=== PATIENT | female | born 1990 | race African-American/Black ===

== ENCOUNTER 2021-08-12 08:06 | Emergency (ER) | payer OTHER, SELFPAY ==
[2021-08-12 08:57] LABS: #Eosinphils 0.1 10x3/uL (0.0-0.5); #Monocytes 0.3 10x3/uL (0.0-1.1); #Neutrophils 7.6 10x3/uL (1.5-8.4); %Basophils 0.3 % (0.0-2.0); %Eosinophils 1.2 % (0.0-6.0); %Lymphocytes 11.1 % (18.0-47.0); %Monocytes 3.7 % (0.0-10.0); %Neutrophils 83.4 % (40.0-75.0); Hemoglobin 13.4 g/dL (12.0-15.5); Mean Corpuscular HGB CONC 34.3 g/dL (32.0-36.0); Mean Corpuscular Hemoglobin 28.1 pg (27.0-33.0); Mean Platelet Volume 12.2 fl (7.4-10.4); Platelet Count 206 10x3/uL (150-450); RBC Distribution Width 14.2 % (11.5-14.5); Red Blood Cell (RBC) Count 4.77 10x6/uL (3.90-5.03); White Blood Cell (WBC) Count 9.2 10x3/uL (3.5-10.5)
[2021-08-12] MEDS ORDERED: Ketorolac Tromethamine 30 MG/ML VIAL ONE (08:57)
[2021-08-12] MEDS ORDERED: Ondansetron PF 4 MG/2 ML Vial ONE (08:58)
[2021-08-12 09:03] LABS: BHCG - Serum Negative (NEGATIVE); Pregs Control Background? CLEAR/WHITE (CLR/WHITE); Pregs Control Bar Appear? YES (CONTROL BAR)
[2021-08-12 09:08] LABS: ALT (SGPT) 12 U/L (8-55); AST (SGOT) 20 U/L (5-34); Albumin 4.5 g/dL (3.5-5.0); Alkaline Phosphatase 66 U/L (40-110); Anion Gap 12 mmol/L (10-20); BUN (Urea Nitrogen) 14 mg/dL (7.0-18.7); Bilirubin, Total 1.2 mg/dL (0.2-1.2); Calc. Creatinine Clearance 0 mL/min (70-130); Calcium 9.1 mg/dL (7.8-10.44); Carbon Dioxide 25 mmol/L (22-29); Chloride 106 mmol/L (98-107); Glucose 92 mg/dL (70-105); Lipase 36 U/L (8-78); Potassium 3.8 mmol/L (3.5-5.1); Protein, Total 7.5 g/dL (6.0-8.3); Sodium 139 mmol/L (136-145)
[2021-08-12 09:22] LABS: Bilirubin Neg (Negative); Blood, Urine 25 (Negative); Clarity Clear (Clear); Glucose, Urine (Dipstick) Normal (Negative); Ketone, Urine Negative (Negative); Leukocyte Negative (Negative); Nitrite Negative (Negative); Protein, Urine (Dipstick) Negative (Neg-Trace); Urobilinogen Normal mg/dL (Less than 2)
[2021-08-12 09:40] LABS: Bacteria/HPF None Seen HPF (None Seen); Mucous/LPF 1+ LPF (<2+); RBC/HPF 0-3 HPF (0-3); Squamous Epithelial 0-3 HPF (0-3); WBC/HPF 0-3 HPF (0-3)
== END 2021-08-12 09:55 | disposition home or self-care (01) ==
LOC: CSHERS 08:06
DX: R11.2 Nausea with vomiting, unspecified (principal); R10.13 Epigastric pain; R19.7 Diarrhea, unspecified; F17.210 Nicotine dependence, cigarettes, uncomplicated
CPT/HCPCS: 80053; 81003; 81015; 83690; 84703; 85025; 96361; 96374; 96375; J1885; J2405

== ENCOUNTER 2021-12-24 08:26 | Emergency (ER) | payer OTHER | END 2021-12-24 10:26 | disposition home or self-care (01) | LOC: CSHERS 08:26 | DX: B34.9 Viral infection, unspecified (principal); F17.210 Nicotine dependence, cigarettes, uncomplicated; Z20.822 Contact with and (suspected) exposure to COVID-19 | CPT/HCPCS: 71046; 87804; U0003; U0005 ==

== ENCOUNTER 2021-12-29 11:28 | Emergency (ER) | payer OTHER | END 2021-12-29 13:59 | disposition home or self-care (01) | LOC: CSHERS 11:28 | DX: H10.9 Unspecified conjunctivitis (principal); D64.9 Anemia, unspecified; F17.210 Nicotine dependence, cigarettes, uncomplicated | CPT/HCPCS: 99282 ==

== ENCOUNTER 2022-06-22 10:26 | Emergency (ER) | payer OTHER ==
[2022-06-22] MEDS ORDERED: Oxymetazoline HCl 0.05% ( 15 ML ) ONE (11:06)
== END 2022-06-22 11:24 | disposition home or self-care (01) ==
LOC: CSHERS 10:26
DX: O99.512 Diseases of the respiratory system complicating pregnancy, second trimester (principal); F17.210 Nicotine dependence, cigarettes, uncomplicated; Z3A.16 16 weeks gestation of pregnancy
CPT/HCPCS: 99283

== ENCOUNTER 2022-10-19 23:15 | Day surgery (SDC) | payer OTHER ==
[2022-10-20] MEDS ORDERED: hydrALAZINE 20 MG/ML VIAL SLOW IVP PRN (00:50)
[2022-10-20 05:51] LABS: Bilirubin Negative (Negative); Clarity Slightly Cloudy (Clear); Glucose, Urine (Dipstick) Negative (Negative); Ketone, Urine 5 mg/dL (Negative); Leukocyte Negative (Negative); Nitrite Negative (Negative); Protein, Urine (Dipstick) Negative (Neg-Trace); Urobilinogen Normal mg/dL (Less than 2)
[2022-10-20 05:52] LABS: Bacteria/HPF None Seen HPF (None Seen); Blood, Urine Negative (Negative); CAUTI Indications for Culture Pregnancy; RBC/HPF None Seen HPF (0-3); Squamous Epithelial 0-3 HPF (0-3); WBC/HPF None Seen HPF (0-3)
[2022-10-20 05:53] LABS: Urine Culture Reflex Yes Yes
[2022-10-20 06:14] LABS: Hemoglobin 10.2 g/dL (12.0-15.5); Mean Corpuscular HGB CONC 33.8 g/dL (32.0-36.0); Mean Corpuscular Hemoglobin 29.5 pg (27.0-33.0); Mean Corpuscular Volume 87.3 fl (81.6-98.3); Mean Platelet Volume 13.3 fl (7.4-10.4); Platelet Count 134 10x3/uL (150-450); RBC Distribution Width 13.3 % (11.5-14.5); Red Blood Cell (RBC) Count 3.46 10x6/uL (3.90-5.03); White Blood Cell (WBC) Count 10.2 10x3/uL (3.5-10.5)
[2022-10-20 06:30] LABS: #Eosinphils 0.1 10x3/uL (0.0-0.5); #Monocytes 0.8 10x3/uL (0.0-1.1); #Neutrophils 6.9 10x3/uL (1.5-8.4); %Basophils 0.3 % (0.0-2.0); %Eosinophils 1.1 % (0.0-6.0); %Lymphocytes 24.8 % (18.0-47.0); %Monocytes 7.9 % (0.0-10.0); %Neutrophils 65.6 % (40.0-75.0)
== END 2022-10-20 06:24 | disposition home or self-care (01) ==
LOC: CSHLD/OP 23:15
PROVIDERS: ATTEND Obstetrics & Gynecology
DX: O98.813 Other maternal infectious and parasitic diseases complicating pregnancy, third trimester (principal); B37.31 Acute candidiasis of vulva and vagina; O26.893 Other specified pregnancy related conditions, third trimester; R10.30 Lower abdominal pain, unspecified; O26.53 Maternal hypotension syndrome, third trimester; O99.013 Anemia complicating pregnancy, third trimester; D64.9 Anemia, unspecified; O47.03 False labor before 37 completed weeks of gestation, third trimester; Z3A.33 33 weeks gestation of pregnancy; Z79.899 Other long term (current) drug therapy; Z79.82 Long term (current) use of aspirin; Z90.49 Acquired absence of other specified parts of digestive tract; Z88.6 Allergy status to analgesic agent
CPT/HCPCS: 81001; 85025; 87086; 87480; 87510; 87660

== ENCOUNTER 2022-11-20 09:53 | Inpatient (IN) | payer OTHER ==
[2022-11-20] MEDS ORDERED: hydrALAZINE 20 MG/ML VIAL SLOW IVP PRN (10:37)
[2022-11-20 10:51] LABS: Fetal Membranes Rupture RUPTURE DETECTED (No Rupture)
[2022-11-20] MEDS ORDERED: Lidocaine 1% (PF) 30 ML VIAL SC PRN (12:08)
[2022-11-20] MEDS ORDERED: fentaNYL 50 mcg/mL 1 mL Vial SLOW IVP PRN (12:08)
[2022-11-20] MEDS ORDERED: Ondansetron PF 4 MG/2 ML Vial IVP PRN ×2 (12:08→17:20)
[2022-11-20] MEDS ORDERED: Promethazine HCl 25 MG/ML VIAL IM PRN ×2 (12:08→17:20)
[2022-11-20] MEDS ORDERED: Docusate 100 MG CAP PO PRN (12:08)
[2022-11-20] MEDS ORDERED: Diphenoxylate HCl/Atropine Tablet PO PRN (12:08)
[2022-11-20] MEDS ORDERED: Tranexamic Acid 1,000 MG/10 ML VIAL IVP PRN (12:08)
[2022-11-20] MEDS ORDERED: Ibuprofen 800 MG TAB PO PRN (12:08)
[2022-11-20] MEDS ORDERED: Misoprostol 200 MCG TAB PR PRN (12:08)
[2022-11-20] MEDS ORDERED: Carboprost 250 MCG/ML AMP IM PRN (12:08)
[2022-11-20] MEDS ORDERED: Methylergonovine 0.2 MG/ML VIAL IM PRN (12:08)
[2022-11-20] MEDS ORDERED: Acetaminophen 500 MG TAB PO PRN (12:08)
[2022-11-20] MEDS ORDERED: Misoprostol 100 MCG TAB ONE (12:14)
[2022-11-20] MEDS ORDERED: Misoprostol 100 MCG TAB VAG SCH (12:15)
[2022-11-20] MEDS ORDERED: NS w/ Oxytocin 30 units 500 ML IV SCH ×2 (12:15)
[2022-11-20 12:52] VITALS: BMI 28.3
[2022-11-20 13:31] LABS: Hematocrit 32.6 % (34.9-44.5); Hemoglobin 11.3 g/dL (12.0-15.5); Mean Corpuscular HGB CONC 34.7 g/dL (32.0-36.0); Mean Corpuscular Hemoglobin 30.2 pg (27.0-33.0); Mean Corpuscular Volume 87.2 fl (81.6-98.3); Mean Platelet Volume 13.6 fl (7.4-10.4); Platelet Count 127 10x3/uL (150-450); RBC Distribution Width 13.5 % (11.5-14.5); Red Blood Cell (RBC) Count 3.74 10x6/uL (3.90-5.03); White Blood Cell (WBC) Count 8.6 10x3/uL (3.5-10.5)
[2022-11-20 13:46] LABS: Syphilis Antibody Nonreactive (Nonreactive); Syphilis Antibody Index 0.06 S/CO (<1.00 Non-Reactive)
[2022-11-20 13:47] LABS: HBSAg Index 0.14 S/CO (0-0.99); Hep B Surf Ag - L&D Non-Reactive S/CO (NonReactive)
[2022-11-20] MEDS ORDERED: fentaNYL/Ropivacaine Epidural 100 ML ONE (16:32)
[2022-11-20] MEDS ORDERED: Moisturizing Cream (Eucerin) 113 GM JAR TOP PRN (17:20)
[2022-11-20] MEDS ORDERED: Naloxone HCl 0.4 mg/ml Vial IVP PRN ×2 (17:20)
[2022-11-20] MEDS ORDERED: Lactated Ringer's 500 ML IV PRN (17:20)
[2022-11-20] MEDS ORDERED: ePHEDrine Sulfate 50 MG/10 ML VIAL SLOW IVP PRN (17:20)
[2022-11-20] MEDS ORDERED: diphenhydrAMINE 50 MG/ML VIAL IVP PRN (17:20)
[2022-11-20] MEDS ORDERED: Communication Order-Pharmacy FS SCH (17:30)
[2022-11-20] MEDS ORDERED: fentaNYL 2 mcg/Ropivacaine 0.2% Epidural 100 ML CADD EPIDURAL SCH (17:30)
[2022-11-20] MEDS ORDERED: Bisacodyl 10 MG SUPP PR PRN (22:02)
[2022-11-20] MEDS ORDERED: Milk Of Magnesia 30 ML UDCUP PO PRN (22:02)
[2022-11-20] MEDS ORDERED: Boostrix 0.5 ML (Tdap) VIAL (>/=7 yrs of age) IM ONE (22:02)
[2022-11-21] MEDS: Ibuprofen 800 MG TAB PO PRN ×4 (02:40→21:01)
[2022-11-21] MEDS: Ferrous Sulfate 325 MG TAB PO SCH ×2 (07:29→18:18)
[2022-11-21] MEDS: Docusate 100 MG CAP PO SCH ×2 (07:54→21:01)
[2022-11-21] MEDS: Acetaminophen 325 MG TAB PO PRN (11:17)
[2022-11-22] MEDS: Acetaminophen 325 MG TAB PO PRN ×2 (04:24→11:22)
[2022-11-22] MEDS: Ibuprofen 800 MG TAB PO PRN ×2 (04:24→12:25)
[2022-11-22] MEDS: Ferrous Sulfate 325 MG TAB PO SCH (08:50)
[2022-11-22] MEDS: Docusate 100 MG CAP PO SCH (08:50)
[2022-11-22 11:55] VITALS: BP 101/55; TEMP 97.9
== END 2022-11-22 14:55 | disposition home or self-care (01) | DRG 807 ==
LOC: CSHLD/OP 09:53 → CSHLD 11:32 → CSHPP 21:50
PROVIDERS: ADMIT Obstetrics & Gynecology; ATTEND Obstetrics & Gynecology
PROC: 10E0XZZ Delivery of Products of Conception, External Approach (ICD-10-PCS; principal; 2022-11-20)
PROC: 3E033VJ Introduction of Other Hormone into Peripheral Vein, Percutaneous Approach (ICD-10-PCS; 2022-11-20)
PROC: 3E033XZ Introduction of Vasopressor into Peripheral Vein, Percutaneous Approach (ICD-10-PCS; 2022-11-20)
DX: O42.02 Full-term premature rupture of membranes, onset of labor within 24 hours of rupture (principal); Z37.0 Single live birth; O99.02 Anemia complicating childbirth; Z3A.38 38 weeks gestation of pregnancy; D50.9 Iron deficiency anemia, unspecified; O99.334 Smoking (tobacco) complicating childbirth; O71.89 Other specified obstetric trauma; Z88.8 Allergy status to other drugs, medicaments and biological substances
CPT/HCPCS: 51702; 84112; 85027; 86780; 86850; 86900; 86901; 87340; 99285

== ENCOUNTER 2023-10-04 15:45 | Day surgery (SDC) | payer OTHER ==
[2023-10-04 16:16] VITALS: BMI 25.7
[2023-10-04] MEDS: Acetaminophen 500 MG TAB PO SCH (17:58)
[2023-10-04] MEDS: Morphine 4 MG/ML VIAL SLOW IVP PRN (20:07)
[2023-10-04] MEDS: Lidocaine 2% Viscous Solution 10 ML, Aluminum & Magnesium Hydroxide 30 ML SSW SCH (21:33)
== END 2023-10-04 23:06 | disposition home or self-care (01) ==
LOC: CSHLD/OP 15:45
PROVIDERS: ATTEND Obstetrics & Gynecology
DX: O47.03 False labor before 37 completed weeks of gestation, third trimester (principal); O99.343 Other mental disorders complicating pregnancy, third trimester; F31.9 Bipolar disorder, unspecified; O99.333 Smoking (tobacco) complicating pregnancy, third trimester; Z3A.34 34 weeks gestation of pregnancy; Z90.49 Acquired absence of other specified parts of digestive tract; Z79.899 Other long term (current) drug therapy; Z88.5 Allergy status to narcotic agent
CPT/HCPCS: 80053; 85025; 86850; 86900; 86901; 87480; 87510; 87660; 96360; 96374; 99284; 99285; J2270

== ENCOUNTER 2023-10-19 13:30 | Inpatient (IN) | payer OTHER ==
[2023-10-19] MEDS ORDERED: Lidocaine 1% (PF) 30 ML VIAL SC PRN (14:22)
[2023-10-19] MEDS ORDERED: Tranexamic Acid 1,000 MG/10 ML VIAL IVP PRN (14:22)
[2023-10-19] MEDS ORDERED: Docusate 100 MG CAP PO PRN (14:22)
[2023-10-19] MEDS ORDERED: Promethazine HCl 25 MG/ML VIAL IM PRN ×2 (14:22→20:00)
[2023-10-19] MEDS ORDERED: hydrALAZINE 20 MG/ML VIAL SLOW IVP PRN ×2 (14:22→20:45)
[2023-10-19] MEDS ORDERED: Misoprostol 200 MCG TAB PR PRN (14:22)
[2023-10-19] MEDS ORDERED: fentaNYL 50 mcg/mL 1 mL Vial SLOW IVP PRN (14:22)
[2023-10-19] MEDS ORDERED: Zolpidem Tartrate 5 MG TAB PO PRN (14:22)
[2023-10-19] MEDS ORDERED: Carboprost 250 MCG/ML AMP IM PRN (14:22)
[2023-10-19] MEDS ORDERED: Diphenoxylate HCl/Atropine Tablet PO PRN (14:22)
[2023-10-19] MEDS ORDERED: Methylergonovine 0.2 MG/ML VIAL IM PRN (14:22)
[2023-10-19] MEDS ORDERED: Acetaminophen 500 MG TAB PO PRN (14:22)
[2023-10-19] MEDS ORDERED: Oxytocin 30 units/NS 500 ML 500 ML IV SCH (14:30)
[2023-10-19 15:14] VITALS: BMI 26.5
[2023-10-19] MEDS: Lactated Ringer's 1,000 ML IV SCH (15:15)
[2023-10-19] MEDS: Penicillin G Potassium 5 MILL.UNITS in Sodium Chloride 0.9% 100 ML IVPB SCH (15:22)
[2023-10-19 15:51] LABS: Hematocrit 29.2 % (34.9-44.5); Mean Corpuscular HGB CONC 34.2 g/dL (32.0-36.0); Mean Corpuscular Hemoglobin 29.1 pg (27.0-33.0); Mean Corpuscular Volume 84.9 fL (81.6-98.3); Mean Platelet Volume 14.2 fL (7.4-10.4); Platelet Count 120 10x3/uL (150-450); RBC Distribution Width 13.4 % (11.5-14.5); Red Blood Cell (RBC) Count 3.44 10x6/uL (3.90-5.03)
[2023-10-19 16:11] LABS: HBsAg Index 0.18 S/CO (0-0.99); Hep B Surf Ag - L&D Non-Reactive S/CO (NonReactive)
[2023-10-19 16:13] LABS: Syphilis Antibody Nonreactive (Nonreactive); Syphilis Antibody Index 0.05 S/CO (<1.00 Non-Reactive)
[2023-10-19 16:52] LABS: HIV (1/2) Antibody/Antigen Non-Reactive (NonReactive); HIV 1/2 INDEX 0.14 S/CO (<1.00)
[2023-10-19] MEDS: Oxytocin 30 units/NS 500 ML 500 ML IV SCH (17:44)
[2023-10-19] MEDS: Penicillin G 2.5 MILL.units 2.5 MILL.UNITS in Premix 1 BAG IVPB SCH (19:38)
[2023-10-19] MEDS: fentaNYL/Ropivacaine Epidural 100 ML ONE (19:49)
[2023-10-19] MEDS ORDERED: ePHEDrine Sulfate 50 MG/10 ML VIAL SLOW IVP PRN (20:00)
[2023-10-19] MEDS ORDERED: Moisturizing Cream (Eucerin) 113 GM JAR TOP PRN (20:00)
[2023-10-19] MEDS ORDERED: Lactated Ringer's 500 ML IV PRN (20:00)
[2023-10-19] MEDS ORDERED: diphenhydrAMINE 50 MG/ML VIAL IVP PRN (20:00)
[2023-10-19] MEDS ORDERED: Naloxone HCl 0.4 mg/ml Vial IVP PRN ×2 (20:00)
[2023-10-19] MEDS ORDERED: Ondansetron PF 4 MG/2 ML Vial IVP PRN (20:00)
[2023-10-19] MEDS ORDERED: fentaNYL 2 mcg/Ropivacaine 0.2% Epidural 100 ML CADD EPIDURAL SCH (20:00)
[2023-10-19] MEDS ORDERED: Acetaminophen 325 MG TAB PO PRN (20:00)
[2023-10-19] MEDS ORDERED: Communication Order-Pharmacy FS SCH (20:00)
[2023-10-19] MEDS: Ondansetron PF 4 MG/2 ML Vial IVP PRN (20:05)
[2023-10-19] MEDS ORDERED: diphenhydrAMINE 25 MG CAP PO PRN (20:45)
[2023-10-19] MEDS ORDERED: Milk Of Magnesia 30 ML UDCUP PO PRN (20:45)
[2023-10-19] MEDS ORDERED: Bisacodyl 10 MG SUPP PR PRN (20:45)
[2023-10-19] MEDS ORDERED: Lanolin Ointment 7 GM TUBE TOP PRN (20:45)
[2023-10-20] MEDS: fentaNYL 50 mcg/mL 1 mL Vial ONE (00:03)
[2023-10-20] MEDS: Dexmedetomidine 200 MCG/2 ML VIAL ONE (00:03)
[2023-10-20] MEDS: Docusate 100 MG CAP PO SCH (00:11)
[2023-10-20] MEDS: Ibuprofen 800 MG TAB PO SCH (00:11)
[2023-10-20 03:21] LABS: Hematocrit 31.3 % (34.9-44.5); Hemoglobin 10.6 g/dL (12.0-15.5); MDiff Complete? YES; Mean Corpuscular HGB CONC 33.9 g/dL (32.0-36.0); Mean Corpuscular Volume 85.8 fL (81.6-98.3); Platelet Count 117 10x3/uL (150-450); RBC Distribution Width 13.3 % (11.5-14.5); Red Blood Cell (RBC) Count 3.65 10x6/uL (3.90-5.03); White Blood Cell (WBC) Count 12.8 10x3/uL (3.5-10.5)
[2023-10-20 03:54] LABS: Eosinophils 1 % (0-10); Lymphocytes 16 % (21-51); Monocytes 6 % (0-10); Neutrophil 75 % (42-75); Reactive Lymphocytes 1 % (0-10)
[2023-10-20 03:58] LABS: Large Platelets SLIGHT (None Seen); Platelet Adequacy Comment Appears Decreased; RBC Morph Comment Within Normal Limits
[2023-10-20] MEDS ORDERED: Zolpidem Tartrate 5 MG TAB PO PRN (05:30)
[2023-10-20] MEDS: Boostrix 0.5 ML (Tdap) VIAL (>/=7 yrs of age) IM ONE (07:55)
[2023-10-20] MEDS: Ferrous Sulfate 325 MG TAB PO SCH (08:03)
[2023-10-20] MEDS: Lactated Ringer's 1,000 ML IV SCH (09:06)
[2023-10-21 07:47] VITALS: BP 98/55; TEMP 98.7
[2023-10-21] MEDS: Sertraline 100 MG TAB PO SCH (08:51)
== END 2023-10-21 12:58 | disposition home or self-care (01) | DRG 807 ==
LOC: CSHLD/OP 13:30 → CSHLD 15:12 → CSHPP 23:09
PROVIDERS: ADMIT Obstetrics & Gynecology; ATTEND Obstetrics & Gynecology
PROC: 10E0XZZ Delivery of Products of Conception, External Approach (ICD-10-PCS; principal; 2023-10-19)
DX: O42.02 Full-term premature rupture of membranes, onset of labor within 24 hours of rupture (principal); Z37.0 Single live birth; Z3A.37 37 weeks gestation of pregnancy; Z88.8 Allergy status to other drugs, medicaments and biological substances; F32.A Depression, unspecified; O99.344 Other mental disorders complicating childbirth; D64.9 Anemia, unspecified; O99.02 Anemia complicating childbirth; D58.2 Other hemoglobinopathies; R33.9 Retention of urine, unspecified; O99.893 Other specified diseases and conditions complicating puerperium
CPT/HCPCS: 85025; 85027; 86780; 86850; 86900; 86901; 87340; 87389; J2405; J2540; J2590; J3010; J7120